=== PATIENT | female | born 1980 | race Caucasian/White ===

== ENCOUNTER 2016-05-31 19:11 | Emergency (ER) | payer OTHER ==
[~2016-05-31] VITALS: Ht 171.5 cm; Wt 95.9 kg
[~2016-05-31 19:11] MED LIST: CITA40TA4 PO; LABE100T23 PO; MULT-506 PO
[2016-05-31 19:13] VITALS: TEMP 36.8; Ht 171.5 cm; Wt 95.9 kg
[2016-05-31] MEDS ORDERED: TRAZ100T29 PO (19:23)
[2016-05-31 19:55] LABS: BASO % 0.4 %; BASO ABS # 0.04 K/uL (0-0.2); COMPLETE YES; EOS % 7.1 %; HEMATOCRIT 35.6 % (37-47); IG% 0.3 %; LYMPH % 24.8 %; LYMPH ABS # 2.48 K/uL (1.2-3.4); MEAN CELL VOLUME 75.3 fL (80-100); MEAN CORPUSCULAR HEMOGLOBIN 23.7 pg (25-34); MEAN CORPUSCULAR HGB CONC 31.5 g/dl (32-36); MEAN PLATELET VOLUME 8.2 fL (7.4-10.4); MONO % 9.4 %; PLATELET COUNT 381 K/uL (130-400); RED BLOOD COUNT 4.73 M/uL (4.2-5.4); WHITE BLOOD COUNT 9.99 K/uL (4.8-10.8)
[2016-05-31 20:14] LABS: BUN/CREATININE RATIO 12.3 (10-20); CALCIUM 8.9 mg/dl (8.5-10.1); CREATININE 1.1 mg/dl (0.60-1.20); POTASSIUM 3.9 mmol/L (3.5-5.1)
--- NOTE | 2016-05-31 20:25 | DIAGNOSTIC IMAGING REPORT ---
CHEST 2 VIEWS ROUTINE HISTORY: cough and fever COMPARISON: Chest 02/24/2016. FINDINGS: The lungs are clear. Cardiac silhouette is normal in size. No pleural effusions. No pneumothorax. IMPRESSION: No acute process. Electronically signed by: Tay Garibay M.D. 05/31/2016 8:23 PM Dictated Date/Time: 05/31/2016 8:22 PM
[2016-05-31] MEDS ORDERED: HYDROCODONE/HOMATROPINE SYRUP 5MG/1.5MG 5ML UDP PO STA (20:51)
[2016-05-31] MEDS ORDERED: BENZ100C6 PO (20:54)
[2016-05-31 21:07] VITALS: BP 138/79; PULSE 72; O2SAT 96
--- NOTE | 2016-06-01 01:00 | EMERGENCY ROOM VISIT NOTE ---
History Report prepared by Cynthia: Roxann Conley Under the Supervision of: Dr. Jason Mendenhall D.O. First contact with patient: 19:17 Chief Complaint: COUGH Stated Complaint: CHEST PAIN, SOB Nursing Triage Summary: pt reports back pain with coughing, chest tightness. cough for 2 days, congestion. History of Present Illness The patient is a 35 year old female who presents to the Emergency Room with complaints of a constant chest pain beginning 2 days ago. The patient states that she started feeling mucous in her throat 2 days ago. She complains of leg pain, "lung pain", upper back pain radiating into the neck that started today and is worsened with coughing, cough, sore throat, ear pain, and chest pain that is only present with coughing. She denies any fever, abdominal pain, shortness of breath, nausea, vomiting, urinary symptoms, coughing up blood, recent travel, recent surgeries, and recent antibiotics. The patient reports that no one around her has been sick. She states that she has hypertension and is not on control. She notes that she has been eating and drinking normally. Source of History: patient Onset: 2 days ago Position: other (global) Timing: constant Associated Symptoms: + back pain, + chest pain, + neck pain, + sorethroat, No SOB, No abdominal pain, No fevers, No nausea, No urinary symptoms, No vomiting Note: She complains of leg pain. She denies any coughing up blood, recent travel, recent surgeries, and recent antibiotics. Review of Systems See HPI for pertinent positives & negatives. A total of 10 systems reviewed and were otherwise negative. Past Medical & Surgical Medical Problems: (1) Depression (2) HTN (hypertension) Family History Diabetes mellitus FH: cancer FH: gallbladder disease Hypertension Social History Smoking Status: Current Every Day Smoker Occupation Status: employed Current/Historical Medications Scheduled Benzonatate (Tessalon Perles), 100 MG PO TID Escitalopram Oxalate (Escitalopram Oxalate), 20 MG PO DAILY Labetalol HCl (Labetalol HCl), 100 MG PO BID Scheduled PRN Trazodone Hcl (Trazodone), 200 MG PO HS PRN for Sleep Allergies Coded Allergies: Erythromycin (Verified Allergy, Unknown, 03/26/16) Latex1 -Allergic Contact Dermititis (Verified Allergy, Unknown, RASH, ) Physical Exam Vital Signs Date Time Temp Pulse Resp B/P Pulse Ox O2 Delivery O2 Flow Rate FiO2 05/31/16 21:07 72 18 138/79 96 05/31/16 19:15 95 Room Air 05/31/16 19:13 36.8 74 20 145/84 95 Room Air Physical Exam GENERAL: sitting up in bed, nonproductive cough, no distress, non-toxic EYE EXAM: normal conjunctiva OROPHARYNX: no exudate, no erythema, lips, buccal mucosa, and tongue normal and mucous membranes are moist NECK: supple, no nuchal rigidity, no adenopathy, non-tender LUNGS: Clear to auscultation. Normal chest wall mechanics HEART: no murmurs, S1 normal and S2 normal CHEST: Reproducible right anterior chest wall tenderness ABDOMEN: abdomen soft, non-tender, normo-active bowel sounds, no masses, no rebound or guarding. BACK: Back is symmetrical on inspection and there is no deformity, right paraspinal mid thoracic tenderness tracking up to C7 SKIN: no rashes and no bruising UPPER EXTREMITIES: upper extremities are grossly normal. LOWER EXTREMITIES: No pitting edema.right calf is slightly larger than left which is chronic per patient NEURO EXAM: Normal sensorium, cranial nerves II-XII grossly intact, normal speech, no gross weakness of arms, no gross weakness of legs. Medical Decision & Procedures ER Provider Diagnostic Interpretation: Xray results per the radiologist and my interpretation. CHEST 2 VIEWS ROUTINE FINDINGS: The lungs are clear. Cardiac silhouette is normal in size. No pleural effusions. No pneumothorax. IMPRESSION: No acute process. Electronically signed by: Tay Garibay M.D. 05/31/2016 8:23 PM Dictated Date/Time: 05/31/2016 8:22 PM Laboratory Results 05/31/16 19:45 Red Blood Count 4.73, Mean Corpuscular Volume 75.3, Mean Corpuscular Hemoglobin 23.7, Mean Corpuscular Hemoglobin Concent 31.5, Mean Platelet Volume 8.2, Neutrophils (%) (Auto) 58.0, Lymphocytes (%) (Auto) 24.8, Monocytes (%) (Auto) 9.4, Eosinophils (%) (Auto) 7.1, Basophils (%) (Auto) 0.4, Neutrophils # (Auto) 5.79, Lymphocytes # (Auto) 2.48, Monocytes # (Auto) 0.94, Eosinophils # (Auto) 0.71, Basophils # (Auto) 0.04 05/31/16 19:45 Test 05/31/16 19:45 White Blood Count 9.99 K/uL (4.8-10.8) Red Blood Count 4.73 M/uL (4.2-5.4) Hemoglobin 11.2 g/dL (12.0-16.0) Hematocrit 35.6 % (37-47) Mean Corpuscular Volume 75.3 fL (80-100) Mean Corpuscular Hemoglobin 23.7 pg (25-34) Mean Corpuscular Hemoglobin Concent 31.5 g/dl (32-36) Platelet Count 381 K/uL (130-400) Mean Platelet Volume 8.2 fL (7.4-10.4) Neutrophils (%) (Auto) 58.0 % Lymphocytes (%) (Auto) 24.8 % Monocytes (%) (Auto) 9.4 % Eosinophils (%) (Auto) 7.1 % Basophils (%) (Auto) 0.4 % Neutrophils # (Auto) 5.79 K/uL (1.4-6.5) Lymphocytes # (Auto) 2.48 K/uL (1.2-3.4) Monocytes # (Auto) 0.94 K/uL (0.11-0.59) Eosinophils # (Auto) 0.71 K/uL (0-0.5) Basophils # (Auto) 0.04 K/uL (0-0.2) RDW Standard Deviation 42.5 fL (36.4-46.3) RDW Coefficient of Variation 15.5 % (11.5-14.5) Immature Granulocyte % (Auto) 0.3 % Immature Granulocyte # (Auto) 0.03 K/uL (0.00-0.02) D-Dimer < 190 ug/L FEU (0-500) Anion Gap 10.0 mmol/L (3-11) Est Creatinine Clear Calc Drug Dose 86.5 ml/min Estimated GFR () 75.9 Estimated GFR (Non- 65.5 BUN/Creatinine Ratio 12.3 (10-20) Calcium Level 8.9 mg/dl (8.5-10.1) Influenza Type A Antigen Neg for Influ A (NEG) Influenza Type B Antigen Neg for Influ B (NEG) Laboratory results per my review. Medications Administered Medications (Trade) Dose Ordered Sig/Guillermo Route Start Time Stop Time Status Last Admin Dose Admin Hydrocodone Bit/ Homatropine Methylb (Hycodan Syrup) 5 ml NOW STAT PO 05/31/16 20:51 05/31/16 20:53 DC 05/31/16 21:05 5 ML ECG Indication: other (cough) Rate (beats per minute): 66 Rhythm: sinus rhythm Findings: no ectopy, other (normal axis) ED Course ED COURSE: Vital signs were reviewed and vitals The patients medical record was reviewed The above diagnostic studies were performed and reviewed. ED treatments and interventions as stated above. 1921: The patient was evaluated in room A4. A complete history and physical examination was performed. 2050: Hycodan Syrup 5ml PO. 2051: I reevaluated the patient and she is feeling fine. 2104: Upon reevaluation, the patient is hemodynamically stable.I discussed my findings with the patient and she understands and agrees with the treatment plan. Based on the patients age, coexisting illnesses, exam and lab findings the decision to treat as an outpatient was made. The patient remained stable while under my care. The patient appeared well at the time of discharge. Medical Decision Differential diagnoses includes but is not limited to acute coronary syndrome, myocardial infarction, pericarditis, pulmonary embolus, aortic dissection, pneumonia, pneumothorax, musculoskeletal, shingles, esophageal. Patient is a 35-year-old female who presents the ER with congestion and productive cough which is been present for the past several days. She notes that has been worsening. Labs showed no significant stenosis or anemia. BMP was unremarkable. D-dimer was negative. She does have acute clear reproducible anterior chest wall tenderness which I do not believe is cardiac. She also has right upper thoracic paraspinal tenderness. This is also clearly muscle skeletal. She was given anti-tussis with improvement of her symptoms. Chest x-ray shows no focal infiltrate. Influenza A/B were negative. Based on her symptoms this is clearly a viral URI. Recommended Motrin for her musculoskeletal pain along with Tessalon Perles as needed for coughing at home. Discussed with Pt concerning signs and symptoms to watch out for. Pt was instructed to follow up with their PCP and discussed with the patient their option to return to the ED at anytime for persistent or worsening symptoms. The appropriate anticipatory guidance and out-patient management, including indications for return to the emergency department, were explained at length to the patient and understood. Impression Primary Impression: Acute bronchitis Additional Impression: Cough Scribe Attestation The scribe's documentation has been prepared under my direction and personally reviewed by me in its entirety. I confirm that the note above accurately reflects all work, treatment, procedures, and medical decision making performed by me. Departure Information Dispostion Home / Self-Care Prescriptions Benzonatate (TESSALON PERLES) 100 Mg Cap 100 MG PO TID, #20 CAP Prov: Jason Mendenhall, DO 05/31/16 Referrals Khari Gilliland M.D. (PCP) Forms HOME CARE DOCUMENTATION FORM, IMPORTANT VISIT INFORMATION Patient Instructions ED Bronchitis Viral, My [facility] Additional Instructions Please follow up with your primary care doctor with in the next 24 hours. Any worsening of your symptoms, please return to the ED immediately. This includes persistent fevers greater than 100.4, confusion, weakness, unable to eat or drink, syncope/passing out, or any other concerning signs or symptoms from your standpoint. Please take Tessalon Perles as needed for coughing. You may also benefit from 1 teaspoon of honey 4 times a day as needed for coughing. Problem Qualifiers Primary Impression: Acute bronchitis Bronchitis organism: unspecified organism Qualified Codes: J20.9 - Acute bronchitis, unspecified
[2016-08-09] MEDS ORDERED: LXP/20 PO (19:35)
[2016-08-09] MEDS ORDERED: LBT100 PO (19:35)
== END 2016-05-31 21:07 | disposition home or self-care (01) ==
LOC: C.EDB 19:11 → C.EDA 21:07
DX: J20.9 Acute bronchitis, unspecified (principal); R05 Cough; I10 Essential (primary) hypertension; F32.9 Major depressive disorder, single episode, unspecified; F17.210 Nicotine dependence, cigarettes, uncomplicated; Z79.899 Other long term (current) drug therapy

== ENCOUNTER 2016-07-26 12:03 | Emergency (ER) | payer OTHER ==
[~2016-07-26] VITALS: Ht 171.5 cm; Wt 95.4 kg
[~2016-07-26 12:03] MED LIST changes: -CITA40TA4 PO; -LABE100T23 PO; -MULT-506 PO; +TRAZ100T29 PO
[2016-07-26 12:13] VITALS: TEMP 36.4; Ht 171.5 cm; Wt 95.4 kg
[2016-07-26] MEDS ORDERED: ACET-749 PO (13:11)
[2016-07-26] MEDS ORDERED: CYCL10TA6 PO (13:11)
[2016-07-26 13:16] VITALS: BP 137/88; PULSE 66; O2SAT 97
--- NOTE | 2016-07-26 18:23 | EMERGENCY ROOM VISIT NOTE ---
History First contact with patient: 12:57 Chief Complaint: NECK PAIN Stated Complaint: NECK PAIN, MIGRAINE History of Present Illness The patient is a 35 year old female who presents to the Emergency Room with complaints of a neck pain and headache. The patient reports a history of migraines. She reports that sometimes she will have blurred vision and light sensitivity with migraines. Other times she will have neck pain that proceeds her headaches. The patient reports that she has had migraines since being a teenager. She has been managed by her PCP, Dr. Gilliland. She takes Excedrin Migraine when she has a headache. She did have some mild nausea, vomiting and diarrhea 2 days ago, but that was short-lived. She denies any recent head injury, upper respiratory infection, sinus congestion or risk of carbon monoxide exposure. The patient sleeps on her side predominantly because she snores and keeps her significant other awake. She often times will wake up with a stiff neck. She rates her discomfort a 7 out of 10. Review of Systems 10 system review was performed and was negative except for pertinent positives and negatives as indicated in history of present illness Past Medical/Surgical History Medical Problems: (1) Depression (2) HTN (hypertension) Family History Diabetes mellitus FH: cancer FH: gallbladder disease Hypertension Social History Smoking Status: Former Smoker Alcohol Use: none Marital Status: single Housing Status: lives with family Occupation Status: employed Current/Historical Medications Scheduled Escitalopram Oxalate (Escitalopram Oxalate), 20 MG PO DAILY Labetalol HCl (Labetalol HCl), 100 MG PO BID Scheduled PRN Acetaminophen/Codeine (Tylenol W/Codeine #3), 1-2 TABS PO q4-6h PRN for Pain Cyclobenzaprine Hcl (Flexeril), 10 MG PO TID PRN for spasm Trazodone Hcl (Trazodone), 200 MG PO HS PRN for Sleep Allergies Coded Allergies: Erythromycin (Verified Allergy, Unknown, 03/26/16) Latex1 -Allergic Contact Dermititis (Verified Allergy, Unknown, RASH, ) Physical Exam Vital Signs Date Time Temp Pulse Resp B/P Pulse Ox O2 Delivery O2 Flow Rate FiO2 07/26/16 13:16 66 18 137/88 97 07/26/16 12:13 36.4 65 18 129/90 98 Room Air Pain Rating (0-10): 7.0 Physical Exam CONSTITUTIONAL: Healthy and well nourished. Alert and oriented X 3 with positive affect. Patient does not appear in any acute distress. HEENT: Normocephalic, atraumatic. Pupils equal, round and reactive. Ears and nares are clear. The patient is mildly photophobic. OROPHARYNX: No tonsillar hypertrophy or exudates. NECK: Examination shows generalized tenderness to palpation of the trapezius muscles. No focal tenderness to the central cervical spine. RESPIRATORY: Clear to auscultation bilaterally with no wheezing, crackles, rhonchi or stridor. CARDIOVASCULAR: Regular rate and rhythm with no murmurs, rubs or gallops. GASTROINTESTINAL: Bowel sounds present in all quadrants. Soft and nontender to palpation. MUSCULOSKELETAL: Full range of motion of all joints without discomfort. INTEGUMENTARY: No rash or other significant dermatologic conditions noted. NEUROLOGIC: No focal neurologic deficits noted. Negative pronator drift. Normal fast alternating hand movements. No ataxia noted with ambulation from triage to her examination room. Medical Decision & Procedures ED Course Patient history and physical exam were performed. Nurse's notes were reviewed. Vital signs were reviewed and were normal. The patient refused any analgesics while in the emergency department. I ask went to the patient that she is likely suffering from cervicogenic headaches. She was encouraged to try sleeping on her back with a soft towel around her neck. She was instructed to take ibuprofen for baseline pain relief. She was provided prescriptions for Tylenol with Codeine and Flexeril as needed for additional relief. No drinking or driving while taking these medications. She was encouraged to follow-up with her PCP for further workup and management. The patient was happy with plan of care, and voiced understanding of all discharge instructions. Medical Decision Patient presents to the emergency department with complaint of a headache and neck pain. The patient has had this type of headache and simultaneous neck pain in the past, consistent with cervicogenic headaches. She also occasionally has visual disturbances with her headaches as well. At this point , I do not suspect meningitis, CVA/TIA, thromboembolic event, abscess, intracranial bleed or carbon monoxide poisoning. I do not feel that further laboratory, imaging studies or lumbar puncture are warranted. Impression Primary Impression: Cervicogenic headache Departure Information Dispostion Home / Self-Care Condition GOOD Prescriptions Acetaminophen/Codeine (Tylenol W/Codeine #3) 300 Mg/30 Mg Tab 1-2 TABS PO q4-6h Y for Pain, #20 TAB For Initial Treatment Prov: Carlos Allen PA 07/26/16 Cyclobenzaprine Hcl (FLEXERIL) 10 Mg Tab 10 MG PO TID Y for spasm, #20 TAB Prov: Carlos Allen PA 07/26/16 Referrals Khari Gilliland M.D. Forms HOME CARE DOCUMENTATION FORM, IMPORTANT VISIT INFORMATION Patient Instructions My [facility] [place] Additional Instructions Try to sleep on your back or recliner with a towel wrapped around her neck for support. Intermittently apply heat to the neck. Ibuprofen 600 mg every 6-8 hours. Tylenol with codeine if needed for worse pain. Flexeril if needed for persistent neck pain/spasm. Suggest follow-up with your PCP for further reevaluation of headaches being caused by neck pain.
[2016-08-09] MEDS ORDERED: LXP/20 PO (19:35)
[2016-08-09] MEDS ORDERED: LBT100 PO (19:35)
== END 2016-07-26 13:16 | disposition home or self-care (01) ==
LOC: C.EDB 12:06
DX: G44.89 Other headache syndrome (principal); F32.9 Major depressive disorder, single episode, unspecified; I10 Essential (primary) hypertension; Z87.891 Personal history of nicotine dependence; Z79.899 Other long term (current) drug therapy

== ENCOUNTER 2016-08-09 20:43 | Emergency (ER) | payer OTHER ==
[~2016-08-09] VITALS: Ht 170.2 cm; Wt 97.3 kg
[~2016-08-09 20:43] MED LIST changes: +ACET-749 PO; +LBT100 PO; +LXP/20 PO
[2016-08-09 20:45] VITALS: BP 155/100; TEMP 36.7; Ht 170.2 cm; Wt 97.3 kg
--- NOTE | 2016-08-09 22:27 | DIAGNOSTIC IMAGING REPORT ---
RIGHT ANKLE MIN 3 VIEWS ROUTINE CLINICAL HISTORY: R ankle injury Right trauma. Pain. COMPARISON: None. DISCUSSION: Slight deformity central aspect talar dome. Margins are sclerotic indicative of a nonacute process. No well-defined acute bony abnormality. Cortical margins are intact. The mortise is aligned anatomically. Subtalar joint is intact. There is no evidence for soft tissue swelling. IMPRESSION: No acute bony abnormality. Cortical defect central talar dome felt to be related to old trauma Electronically signed by: Khari Galvan M.D. 08/09/2016 10:26 PM Dictated Date/Time: 08/09/2016 10:25 PM
[2016-08-09 23:07] VITALS: PULSE 90; O2SAT 96
--- NOTE | 2016-08-11 02:19 | EMERGENCY ROOM VISIT NOTE ---
ED Visit Note First contact with patient: 21:43 CHIEF COMPLAINT: Right ankle pain. HISTORY OF PRESENT ILLNESS: Ms. Rayo is a 35-year old female who ambulates into the ED accompanied by family members complaining of right ankle pain. She reports approximately 8 hours ago she she tripped and fell down 2 steps and twisted her ankle. She reports since that time she has been having pain over the lateral aspect of the right ankle. She does reports she's been able to ambulate. Currently she describes her pain as a sharp sensation. She rates her discomfort 6/10. Her pain is nonradiating. Her pain worsens with inversion , palpation and plantar flexion. She has not identified any alleviating factors related to the pain. She has not taken a medication for pain prior to arrival at the hospital. She denies any associated symptoms including hip pain , knee pain, lower leg pain, leg weakness/numbness/tingling. Additionally she denies any previous significant injuries or surgeries to the ankle or foot. REVIEW OF SYSTEMS: As noted above in History of Present Illness. PAST MEDICAL HISTORY: Hypertension. CURRENT MEDICATIONS: Labetalol, escitalopram oxalate. ALLERGIES TO MEDICATIONS: Erythromycin. SOCIAL HISTORY: Patient is not employed; she feels safe in her home environment; she admits to tobacco use and denies alcohol use. PHYSICAL EXAM: Vital Signs: Date Time Temp Pulse Resp B/P Pulse Ox O2 Delivery O2 Flow Rate FiO2 08/09/16 23:07 90 18 96 Room Air 08/09/16 20:45 36.7 82 18 155/100 97 Room Air General: 35 year old female in mild/moderate distress due to pain, nontoxic- appearing afebrile and hemodynamically stable. Neurological: Awake, alert, oriented to person place and time. Answering questions appropriately and following commands. Skin: Warm dry and pink. No soft tissue injuries Right Lower Extremity: No gross emma deformities. No tenderness in the hip or knee. Tenderness over the ligamentous structures anterior, inferior to the lateral malleolus and anterior posterior to the medial malleolus. There is mild swelling laterally but not immediately. I do not appreciate any bony deformity or crepitus. She had a significant amount of pain when I attempt to distress her ligamentous structures but I did not appreciate any acute laxity. She had decreased range of motion in the ankle due to pain. With her ankle stabilized yet full range of motion of flexion and extension of the toes. Throughout the foot the skin is pink and warm with brisk capillary refill. Able to distinguish light sensations through all dermatomes of the foot. ED COURSE: Patient is assessed as noted above. Right Ankle X-Rays: Were read by myself and the radiologist and shows no acute bony abnormalities but does note a cortical defect of the central Ken[place]ze dome felt to be related to old trauma. Patient is given ice for pain, swelling and comfort; she refused pain medications. Patient is placed in a gel splint and is instructed on crutch use. Patient is educated about her condition and instructed on her treatment plan; she verbalizes understanding and agreement with the our plan. CLINICAL IMPRESSION: Right ankle sprain. DISPOSITION: Patient is discharged to home in stable condition accompanied by her ; prior to departure she was reassessed and subjectively reported she was feeling better and rated her discomfort 2/10. PLAN: Comfort measures were discussed with the patient. Patient was encouraged to follow-up with an orthopedic physician if no better in 7 to 10 days. Patient was encouraged to return emergency department as needed for worsening/ uncontrolled pain, uncontrolled swelling, foot weakness/numbness/tingling or any new/concerning symptoms.
== END 2016-08-09 23:08 | disposition home or self-care (01) ==
LOC: C.EDB 20:43 → C.EDD 23:08
DX: S93.401A Sprain of unspecified ligament of right ankle, initial encounter (principal); W10.9XXA Fall (on) (from) unspecified stairs and steps, initial encounter; I10 Essential (primary) hypertension; Z79.899 Other long term (current) drug therapy; Z72.0 Tobacco use

== ENCOUNTER 2017-01-16 16:25 | Emergency (ER) | payer OTHER ==
[~2017-01-16] VITALS: Ht 171.5 cm; Wt 98.6 kg
[~2017-01-16 16:25] MED LIST changes: -ACET-749 PO; -TRAZ100T29 PO
[2017-01-16 16:51] VITALS: TEMP 36.8; Ht 171.5 cm; Wt 98.6 kg
[2017-01-16] MEDS ORDERED: DiphenhydrAMINE HCL 50 MG/ML VIAL IV STA (17:18)
[2017-01-16] MEDS ORDERED: SODIUM CHLORIDE 0.9% 1000ML 1,000 ML IV STA (17:18)
[2017-01-16] MEDS ORDERED: ONDANSETRON INJ 2 MG/ML 2 ML VIAL IV STA (17:18)
[2017-01-16] MEDS ORDERED: KETOROLAC TROMETHAMINE 30 MG/ML VIAL IV STA (17:18)
--- NOTE | 2017-01-16 17:22 | EMERGENCY ROOM VISIT NOTE ---
History Report prepared by Cynthia: Cristo Marsh Under the Supervision of: Dr. Abdiaziz Delcid M.D. First contact with patient: 17:10 Chief Complaint: HEADACHE Stated Complaint: MIGRAINE History of Present Illness The patient is a 36 year old female who presents to the Emergency Room with complaints of a constant headache beginning this morning. She currently rates her discomfort an 8/10 in severity. The patient states that she does not know the onset of her headache. She reports that her headache is in her eyes and the back of her head. The patient notes that she has been taking Tylenol, but it is not helping. She denies sudden onset, vomiting, fevers, neck stiffness, weakness to her extremities, changes in her sleep, stressors, and abdominal pain. The patient notes that her last normal menstrual period was just over 5 weeks ago, but it is typical for it to be late. She states that she sometimes gets headaches when her menstrual period is late. Source of History: patient Onset: this morning Position: head Symptom Intensity: 8/10 Quality: ache Timing: constant Associated Symptoms: No fevers, No vomiting, No abdominal pain, No weakness (to extremities) Note: Denies: neck stiffness, changes in her sleep, and stressors Review of Systems See HPI for pertinent positives & negatives. A total of 10 systems reviewed and were otherwise negative. Past Medical & Surgical Medical Problems: (1) Depression (2) HTN (hypertension) Family History Diabetes mellitus FH: cancer FH: gallbladder disease Hypertension Social History Smoking Status: Former Smoker Alcohol Use: none Marital Status: single Housing Status: lives with family Occupation Status: employed Current/Historical Medications Scheduled Escitalopram Oxalate (Escitalopram Oxalate), 20 MG PO DAILY Labetalol HCl (Labetalol HCl), 100 MG PO BID Allergies Coded Allergies: Erythromycin (Verified Allergy, Unknown, 03/26/16) Latex1 -Allergic Contact Dermititis (Verified Allergy, Unknown, RASH, ) Physical Exam Vital Signs Date Time Temp Pulse Resp B/P (MAP) Pulse Ox O2 Delivery O2 Flow Rate FiO2 01/16/17 18:55 63 18 130/80 100 Room Air 01/16/17 16:51 36.8 68 18 146/94 97 Room Air Physical Exam GENERAL: Patient is well appearing and in mild distress. HEAD: No acute trauma, normocephalic atraumatic ENT: Mucous membranes moist, no nasal congestion. EYES: Equal/Reactive Bilaterally, No scleral icterus, Normal ROM NECK: No nuchal rigidity, no meningismus, trachea is midline, full ROM LUNGS: No dyspnea. Clear to auscultation and equal bilaterally. No wheeze, no rhonchi. HEART: Regular rate and rhythm. No murmurs, rubs, gallops appreciated. ABDOMEN: Soft, nontender, bowel sounds positive, no masses appreciated, no peritonitis. BACK: No midline tenderness, no CVA tenderness EXTREMITIES: Normal motion all extremities, no cyanosis, no edema. NEUROLOGIC: Awake, Alert, Oriented, no acute motor or sensory deficits, no focal weakness, cranial nerves grossly intact. SKIN: No rash, no jaundice, no diaphoresis. Medical Decision & Procedures Medications Administered Medications (Trade) Dose Ordered Sig/Guillermo Route Start Time Stop Time Status Last Admin Dose Admin Sodium Chloride 1,000 ml @ 999 mls/hr Q1H1M STAT IV 01/16/17 17:18 01/16/17 18:18 DC 01/16/17 17:27 999 MLS/HR Ketorolac Tromethamine (Toradol Inj) 30 mg NOW STAT IV 01/16/17 17:18 01/16/17 17:19 DC 01/16/17 17:27 30 MG Diphenhydramine HCl (Benadryl Inj) 50 mg NOW STAT IV 01/16/17 17:18 01/16/17 17:19 DC 01/16/17 17:27 50 MG Ondansetron HCl (Zofran Inj) 4 mg NOW STAT IV 01/16/17 17:18 01/16/17 17:19 DC 01/16/17 17:26 4 MG ED Course 1712: The patient was evaluated in room A09B. A complete history and physical exam was performed. 1718: Ordered Zofran Inj 4mg IV, Benadryl Inj 50mg IV, Toradol Inj 30mg IV, Sodium Chloride 1000 ml @ 999 mls/hr IV 1827: Reevaluated the patient. She is feeling better and would like to go home. Discussed results and discharge instructions: she verbalized understanding and agreement. The patient is ready for discharge. Medical Decision Differential: Headache, Migraine, Cluster Headache, Seizure, Meningitis, Sinusitis, CO exposure, ICH/SAH, Infectious, Tumor, Sinus Thrombosis, Arterial Dissection, amongst other pathologies entertained. 36 yr old female with history of migraines, though usually just aura arrives with slow onset headache throughout the day. Bilateral temporal headache with nausea without fevers, neuro deficits, neck stiffness nor other symptoms. May be allergy related but denies current sinus congestion. Given toradol/benadryl/ zofran with vast improvement and comfortable with discharge. Reviewed symptoms requiring return. No evidence of meningitis, ich, dissection, nor other acute. Medication Reconcilliation Current Medication List: was personally reviewed by me Blood Pressure Screening Patient's blood pressure: Normal blood pressure Blood pressure disposition: Did not require urgent referral Impression Primary Impression: Migraine Additional Impression: Headache Scribe Attestation The scribe's documentation has been prepared under my direction and personally reviewed by me in its entirety. I confirm that the note above accurately reflects all work, treatment, procedures, and medical decision making performed by me. Departure Information Dispostion Home / Self-Care Referrals No Doctor, Assigned (PCP) Forms HOME CARE DOCUMENTATION FORM, IMPORTANT VISIT INFORMATION Patient Instructions ED Headache Migraine, My [facility] Health Problem Qualifiers
[2017-01-16 18:55] VITALS: BP 130/80; PULSE 63; O2SAT 100
== END 2017-01-16 19:06 | disposition home or self-care (01) ==
LOC: C.EDB 16:25 → C.EDA 19:06
DX: G43.909 Migraine, unspecified, not intractable, without status migrainosus (principal); F32.9 Major depressive disorder, single episode, unspecified; I10 Essential (primary) hypertension; Z83.3 Family history of diabetes mellitus; Z80.9 Family history of malignant neoplasm, unspecified; Z83.79 Family history of other diseases of the digestive system; Z82.49 Family history of ischemic heart disease and other diseases of the circulatory system; Z87.891 Personal history of nicotine dependence; Z79.899 Other long term (current) drug therapy

== ENCOUNTER 2017-06-11 18:59 | Emergency (ER) | payer OTHER ==
[~2017-06-11] VITALS: Ht 170.2 cm; Wt 99.8 kg
[2017-06-11 19:44] VITALS: Ht 170.2 cm; Wt 99.8 kg
[2017-06-11] MEDS ORDERED: AMOX500C3 PO (20:04)
[2017-06-11] MEDS ORDERED: AMOXICILLIN HOME PACK 250 MG/TAB PO ONE (20:15)
[2017-06-11 20:18] VITALS: BP 151/93; PULSE 79; TEMP 37.2; O2SAT 97
--- NOTE | 2017-06-13 03:17 | EMERGENCY ROOM VISIT NOTE ---
History First contact with patient: 19:47 Chief Complaint: EAR PAIN Stated Complaint: SORE THROAT, HEADACHE History of Present Illness The patient is a 36 year old female who presents to the Emergency Room with complaints of sore throat symptoms for the past 2 days. The patient states that her son was diagnosed yesterday with positive strep pharyngitis. The patient has had a low-grade fever but no cough, chest pain, chest tightness, or shortness of breath. She has been taking [id number] analgesics with minimal improvement of symptoms. Discomfort worsens with swallowing. She does not report other complaints. Review of Systems More than 10 systems were reviewed and otherwise negative with the exception of history of present illness. Past Medical/Surgical History Medical Problems: (1) Depression (2) HTN (hypertension) Family History Diabetes mellitus FH: cancer FH: gallbladder disease Hypertension Social History Smoking Status: Never Smoker Alcohol Use: none Marital Status: single Housing Status: lives with family Occupation Status: employed Current/Historical Medications Scheduled Amoxicillin (Amoxil), 500 MG PO TID Escitalopram Oxalate (Escitalopram Oxalate), 20 MG PO DAILY Labetalol HCl (Labetalol HCl), 100 MG PO BID Physical Exam Vital Signs Date Time Temp Pulse Resp B/P (MAP) Pulse Ox O2 Delivery O2 Flow Rate FiO2 06/11/17 20:18 37.2 79 20 151/93 97 06/11/17 19:44 37.2 79 20 151/93 97 Room Air Physical Exam VITALS: Vitals are noted on the nurse's note and reviewed by myself. Vital signs stable. GENERAL: Well-developed, well-nourished, female, who is in no acute distress and resting comfortably. Patient is cooperative with the examination. MOUTH: Mucous membranes moist. Tonsils are 2+ enlarged and erythematous. Pharynx without abscess erythematous. Uvula midline. Airway patent. NECK: Supple without nuchal rigidity. No lymphadenopathy. No thyromegaly. Cervical spine is nontender. HEART: Regular rate and rhythm without murmurs gallops or rubs. LUNGS: Clear to auscultation bilaterally without wheezes, rales or rhonchi. No retractions or accessory muscle use. Medical Decision & Procedures Medications Administered Medications (Trade) Dose Ordered Sig/Guillermo Route Start Time Stop Time Status Last Admin Dose Admin Amoxicillin (Amoxil 250MG Home Pack) 1 homepack UD ONCE PO 06/11/17 20:15 06/11/17 20:16 DC 06/11/17 20:13 1 [facility] ED Course Physical exam and history were performed. Nursing notes, EMR, and Medication List were personally reviewed. Patient appears to have sore throat symptoms for the past one day. She has been exposed to strep pharyngitis as her son was diagnosed with a rapid strep as outpatient. On examination the patient does have erythematous tonsils and pharynx without abscess. She will be started on amoxicillin and given instructions to follow with her primary care physician. She is otherwise invited back to ER with any worsening, or concerning symptoms. The chart was completed utilizing [employer] Speech Voice Recognition Software. Grammatical errors, random word insertions, pronoun errors, and incomplete sentences are an occasional consequence of this system due to software limitations, ambient noise, and hardware issues. Any formal questions or concerns about the content, text, or information contained within the body of this dictation should be directly addressed to the provider for clarification. Medical Decision Differential diagnosis: Etiologies such as viral syndrome, tonsillitis, streptococcal pharyngitis, mononucleosis, peritonsillar abscess, retropharyngeal abscess, otitis, pneumonia , influenza, as well as others were entertained. Impression Primary Impression: Strep pharyngitis Departure Information Dispostion Home / Self-Care Condition GOOD Prescriptions Amoxicillin (AMOXIL) 500 Mg Cap 500 MG PO TID for 9 Days, #27 CAP Prov: Ray Cortez PA-C 06/11/17 Forms HOME CARE DOCUMENTATION FORM, IMPORTANT VISIT INFORMATION Patient Instructions My [facility] Additional Instructions You were seen and evaluated today on an emergency basis only. This is not a substitute for, or an effort to provide, complete comprehensive medical care. It is not possible to recognize and treat all injuries or illnesses in a single emergency department visit. For this reason it is recommended that you followup with your primary care physician with any ongoing or persistent symptoms. Take amoxicillin 500 mg 3 times daily for the next 10 days. For baseline pain relief you may alternate ibuprofen and acetaminophen every 4 hours for pain control. Take 600 mg ibuprofen (Advil) and then 4 hours later take 1000 mg acetaminophen (Tylenol). Do not take more than 3000 mg acetaminophen in a single day. You are welcome to return to the emergency department anytime with new, worsening, or concerning symptoms.
== END 2017-06-11 20:19 | disposition home or self-care (01) ==
LOC: C.EDB 19:00 → C.EDD 20:19
DX: J02.0 Streptococcal pharyngitis (principal); I10 Essential (primary) hypertension; F32.9 Major depressive disorder, single episode, unspecified; Z83.3 Family history of diabetes mellitus; Z82.49 Family history of ischemic heart disease and other diseases of the circulatory system